=== PATIENT | male | born 1965 ===

== ENCOUNTER 2022-06-22 12:16 | Emergency (ER) | payer MEDICARE, MEDICAID ==
[~2022-06-22] VITALS: Ht 182.9 cm; Wt 105.0 kg
[2022-06-22 12:33] VITALS: BP 92/61
[2022-06-22] MEDS ORDERED: LIDOcaine 2% 10ml TOPICAL JELLY (Urojet) TP ONE (12:50)
--- NOTE | 2022-06-22 12:56 | NUR ---
Pt bilateral wrist restrained, no sign of injury noted, pulse palpable.
[2022-06-22 12:58] LABS: BASOPHILS # (AUTO) 0.1 X10'3 (0-0.2); BASOPHILS % (AUTO) 1.2 % (0-1); EOSINOPHILS # (AUTO) 0.4 X10'3 (0-0.9); EOSINOPHILS % (AUTO) 6.7 % (0-6); HEMATOCRIT 23.8 % (42.0-52.0); HEMOGLOBIN 7.5 g/dl (14.0-17.9); LYMPHOCYTES # (AUTO) 0.7 X10'3 (1.1-4.8); LYMPHOCYTES % (AUTO) 13.7 % (21-51); MEAN CORPUSCULAR HEMOGLOBIN 29.5 PG (27.0-31.0); MEAN CORPUSCULAR HGB CONC 31.4 g/dL (33.0-36.5); MEAN CORPUSCULAR VOLUME 93.9 FL (78-98); MEAN PLATELET VOLUME 7.9 FL (7.4-10.4); MONOCYTES # (AUTO) 0.4 X10'3 (0-0.9); MONOCYTES % (AUTO) 8.1 % (2-12); NEUTROPHILS # (AUTO) 3.8 X10'3 (1.8-7.7); NEUTROPHILS % (AUTO) 70.3 % (42-75); PLATELET COUNT 288 X10'3 (140-440); RED BLOOD COUNT 2.53 X10'6 (4.70-6.10); RED CELL DISTRIBUTION WIDTH 15.4 % (11.5-14.5); WHITE BLOOD COUNT 5.4 X10'3 (4.5-11.0)
[2022-06-22 13:10] LABS: APTT 24 SECONDS (22-32)
[2022-06-22 13:11] LABS: ALANINE AMINOTRANSFERASE 35 U/L (12-78); ALBUMIN 2.1 G/DL (3.4-5.0); ALBUMIN/GLOBULIN RATIO 0.6 (1.1-1.5); ALKALINE PHOSPHATASE 92 IU/L (46-116); ANION GAP 6 (8-16); ASPARTATE AMINO TRANSFERASE 22 U/L (10-37); BILIRUBIN,TOTAL 0.4 MG/DL (0.1-1.0); BLOOD UREA NITROGEN 25 MG/DL (7-18); BUN/CREATININE RATIO 37.3 (5.4-32.0); CALCIUM 7.9 MG/DL (8.5-10.1); CHLORIDE 107 MMOL/L (99-107); CREATININE 0.67 MG/DL (0.60-1.10); GLUCOSE 200 MG/DL (70-104); POTASSIUM 4.1 MMOL/L (3.5-5.1); SODIUM 144 MMOL/L (135-145); TOTAL CARBON DIOXIDE 31.2 MMOL/L (24-32); TOTAL PROTEIN 5.9 G/DL (6.4-8.2); eGFR > 90 ML/MIN
[2022-06-22] MEDS ORDERED: iohexol 300mg/ml 100ml inj. ONE (13:15)
[2022-06-22] MEDS ORDERED: ringers solution, lactated 500ml IV solution IV ONE (13:35)
[2022-06-22 14:47] LABS: CLARITY,URINE BLOODY (Clear); COLOR,URINE RED (Yellow); UA COLLECTION TYPE FOLEY CATH
--- NOTE | 2022-06-22 14:52 | NUR ---
Patient went to CT scan accompanied by , WILLIAM Howell and ruth oreilly
[2022-06-22 15:06] LABS: BACTERIA,URINE NONE SEEN /HPF (Neg); MUCUS STRANDS NONE SEEN /LPF (Neg); RBC,URINE TNTC /HPF (0-2); SQUAMOUS EPITHELIAL CELL,UR NONE SEEN /LPF (FEW)
[2022-06-22] MEDS ORDERED: dexmedetomidin/NS 400mcg/100ml 100 ML IV ONE (15:08)
[2022-06-22] MEDS ORDERED: ASPI-611 PO (16:42)
[2022-06-22] MEDS ORDERED: ASPI-1053 GT (16:42)
[2022-06-22] MEDS ORDERED: BACL-11 GT (16:43)
[2022-06-22] MEDS ORDERED: BUDE0.5A3 NEB (16:44)
[2022-06-22] MEDS ORDERED: BUPR75TA8 GT (16:45)
[2022-06-22] MEDS ORDERED: DIGO250T4 GT (16:46)
[2022-06-22] MEDS ORDERED: INSU100V9 SQ (16:47)
[2022-06-22] MEDS ORDERED: FUROSEMIDE (16:47)
[2022-06-22] MEDS ORDERED: INSU100C10 SQ (16:48)
[2022-06-22] MEDS ORDERED: LOP25T GT (16:49)
[2022-06-22] MEDS ORDERED: POLY17PO59 GT (16:50)
--- NOTE | 2022-06-22 16:50 | NUR ---
[facility] CALLED FOR TRANSPORT BACK TO [facility]. ETA PENDING
[2022-06-22] MEDS ORDERED: RISP3TAB63 GT (16:51)
[2022-06-22] MEDS ORDERED: QUET25TA36 GT (16:51)
[2022-06-22] MEDS ORDERED: SENN1TAB82 GT (16:52)
[2022-06-22] MEDS ORDERED: VALP250C3 GT (16:53)
[2022-06-22] MEDS ORDERED: TICA90TA GT (16:53)
[2022-06-22] MEDS ORDERED: DEXM400I IV (16:55)
[2022-06-22] MEDS ORDERED: ALBU2.5V12 NEB (16:57)
[2022-06-22] MEDS ORDERED: DOCUSATE RC (16:59)
[2022-06-22] MEDS ORDERED: HYDR1SYR4 IV (17:00)
[2022-06-22] MEDS ORDERED: HYDR2VIA IV (17:02)
[2022-06-22] MEDS ORDERED: [UNRECOGNIZED DRUG - CODE] IV (17:03)
[2022-06-22] MEDS ORDERED: POLY17PO59 PO (17:04)
[2022-06-22] MEDS ORDERED: ZIPRASIDONE 20 MG/ML IM (17:06)
[2022-06-22 17:09] VITALS: BP 117/75
== END 2022-06-22 18:36 | disposition home or self-care (01) ==
LOC: ER 12:17
DX: R31.9 Hematuria, unspecified (principal); I11.0 Hypertensive heart disease with heart failure; I50.9 Heart failure, unspecified; J44.9 Chronic obstructive pulmonary disease, unspecified; F15.20 Other stimulant dependence, uncomplicated; Z88.8 Allergy status to other drugs, medicaments and biological substances
CPT/HCPCS: 36415; 51702; 74177; 80053; 81001; 82948; 85025; 85610; 85730; 87088; 93005; 94002; 94799; 96365; 96366; 99285; J3490; J7120; Q9967; 94760; A4346; A5200